=== PATIENT | male | born 1945 | race Caucasian/White ===

== ENCOUNTER → 2016-09-03 | Outpatient (CLI) | payer MEDICARE ==
--- NOTE | 2016-09-03 08:09 | MR ---
EXAMINATION TYPE: MR brain wo/w con DATE OF EXAM: 09/03/2016 7:19 AM COMPARISON: NONE HISTORY: memory loss , hemiparesis rt side CONTRAST: Patient received 17 mL intravenous MultiHance gadolinium contrast. Multiplanar and multispin-echo imaging of the brain was performed . Pre and post contrast enhanced i mages are obtained. The ventricles, basal cisterns and sulci overlying the cerebral convexities are mildly enlarged. There is evidence of mild periventricular white matter ischemic demyelination. Remote deep white matter insults are also noted. No acute edema is seen on diffusion weighted imaging. There is no evidence for midline shift or mass effect. Acute intracranial hemorrhage or extra-axial collection is not evident. No enhancing lesions are seen. There is chronic pansinusitis. Mastoid air cells are well-aerated. IMPRESSION: Age-related atrophic and chronic small vessel ischemic change. No acute intracranial process at this time. No enhancing lesions are seen.
== END | disposition home or self-care (01) ==
LOC: RADMRIMAIN 06:32
PROVIDERS: ATTEND Family Medicine
DX: I67.82 Cerebral ischemia (principal); G31.1 Senile degeneration of brain, not elsewhere classified
CPT/HCPCS: 70553; A9577

== ENCOUNTER → 2018-08-15 | Outpatient (CLI) | payer MEDICARE ==
--- NOTE | 2018-08-15 11:37 | FL ---
EXAMINATION TYPE: FL barium swallow DATE OF EXAM: 08/15/2018 CLINICAL HISTORY: Dysphasia. Feels like food getting stuck in mid to distal esophagus for 4 months. TECHNIQUE: A double contrast esophagram is performed utilizing air and barium. A total of 46 second s of fluoroscopic time was utilized during procedure. A total of 37 spot images are saved during proc edure. COMPARISON: None FINDINGS: The esophagus shows fairly moderate dysmotility with abnormal secondary and tertiary contra ctions. No abnormal diverticulum is present. No evidence of suspicious mucosal mass or stricture note d. Small sliding-type hiatal hernia is identified. No significant gastroesophageal reflux was seen du ring real time performance of this study. IMPRESSION: Moderate dysmotility with small sliding-type hiatal hernia.
== END | disposition home or self-care (01) ==
LOC: RADFLWHC 10:45
PROVIDERS: ATTEND Surgery
DX: K22.4 Dyskinesia of esophagus (principal); K44.9 Diaphragmatic hernia without obstruction or gangrene
CPT/HCPCS: 74220

== ENCOUNTER 2018-08-20 10:05 | Day surgery (SDC) | payer MEDICARE ==
[2018-08-19 11:23] VITALS: BMI 26.5
[~2018-08-20 10:05] MED LIST: LACTATED RINGERS 1,000 ML IV SCH; LIDOCAINE 1% 20 ML VIAL (10MG/ML) FOR IV START INTRADERMA PRN
[2018-08-20 10:44] VITALS: RESP 16; TEMP 98.1
[2018-08-20] MEDS ORDERED: LIDOCAINE 1% INJ 10MG/ML (20 ML MDV) ONE (10:59)
[2018-08-20] MEDS ORDERED: PROPOFOL 10 MG/ML 20 ML VIAL IV ONE (10:59)
--- NOTE | 2018-08-20 11:07 | P.GSHP ---
History of Present Illness H&P Date: 08/20/18 Chief Complaint: Dysphagia, history of colon Polyps This is a 73-year-old male who presents today for EGD and colonoscopy. He said complaints of dysphagia. He also history of colon polyps. Past Medical History Past Medical History: Dementia, GERD/Reflux, Memory Impairment, Prostate Disorder, Sleep Apnea/CPAP/BIPAP Additional Past Medical History / Comment(s): having difficulty with swallowing,uses cpap intermittently,able to sign own consents,enlarged prostate History of Any Multi-Drug Resistant Organisms: None Reported Past Surgical History: Bowel Resection Additional Past Surgical History / Comment(s): Yfn fundoplication,bowel resections to remove polyp Past Anesthesia/Blood Transfusion Reactions: No Reported Reaction Additional Past Anesthesia/Blood Transfusion Reaction / Comment(s): no hx blood transfusion Smoking Status: Never smoker - Past Family History Mother History Unknown: Yes Father Family Medical History: No Reported History Medications and Allergies Home Medications Medication Instructions Recorded Confirmed Type Donepezil HCl [Aricept] 10 mg PO DAILY 08/19/18 08/20/18 History Ergocalciferol [Vitamin D2] 50,000 unit PO Q7D 08/19/18 08/20/18 History Finasteride [Proscar] 5 mg PO DAILY 08/19/18 08/20/18 History Memantine [Namenda] 10 mg PO BID 08/19/18 08/20/18 History Simvastatin 40 mg PO DAILY 08/19/18 08/20/18 History Tamsulosin [Flomax] 0.4 mg PO DAILY 08/19/18 08/20/18 History Allergies Allergy/AdvReac Type Severity Reaction Status Date / Time No Known Allergies Allergy Verified 08/19/18 11:11 Surgical - Exam Vital Signs Temp Pulse Resp BP Pulse Ox 98.1 F 54 L 16 150/71 94 L 08/20/18 10:42 08/20/18 10:42 08/20/18 10:42 08/20/18 10:42 08/20/18 10:42 - General well developed, well nourished, no distress - Eyes PERRL - ENT normal pinna - Neck no masses - Respiratory normal expansion - Cardiovascular Rhythm: regular - Abdomen Abdomen: soft, non tender Assessment and Plan Assessment: Dysphagia, history of colon polyps. We'll perform EGD and colonoscopy.
--- NOTE | 2018-08-20 11:37 | P.OP ---
Date of Procedure: 08/20/18 Preoperative Diagnosis: Dysphagia History of colon polyps Postoperative Diagnosis: Mild antral gastritis No evidence of upper GI tract obstruction. Minimal sliding hiatal hernia Multiple colonic polyps Procedure(s) Performed: EGD Colonoscopy Anesthesia: MAC Surgeon: Castillo Muhammad Pathology: other (Antrum, colon polyps) Condition: stable Disposition: PACU Description of Procedure: The patient's placed on the endoscopy table in the lateral position. He received IV sedation. The gastroscope placed oropharynx passed in the esophagus and stomach. Scope was then placed through the pylorus.. The first second portion of the duodenum appeared normal. Scope was then brought back the antrum and this was mildly inflamed. A biopsy was performed. The scope was unretroflexed and remainder of the stomach appeared normal. The patient had a very minimal sliding hiatal hernia. There was no significant reflux. The distal esophagus appeared normal. The GE junction was at 40 cm. The proximal esophagus appeared normal. Scope was withdrawn for patient. Next digital rectal exam was performed which revealed no abnormalities. The flexible colonoscope was then placed patient anus passed throughout the entire colon. The ileocecal valve was visualized. The cecum appeared normal. In the right colon there was a polyp seen this removed with a combination of snare and cold forcep. Scope was then brought back and in the transverse colon there were several small polyps removed with a cold forcep. The scope was then withdrawn remainder the transverse colon descending colon appeared normal. There was a few scattered diverticulitis sigmoid colon. Scope was then brought back the rectum and this appeared normal. Scope withdrawn for patient.
[2018-08-20 11:47] VITALS: BP 103/61; PULSE 62
== END 2018-08-20 12:31 | disposition home or self-care (01) ==
LOC: ORWHC2ENDO 10:05
PROVIDERS: ATTEND Surgery
DX: Z12.11 Encounter for screening for malignant neoplasm of colon (principal); D12.2 Benign neoplasm of ascending colon; D12.3 Benign neoplasm of transverse colon; K44.9 Diaphragmatic hernia without obstruction or gangrene; K29.50 Unspecified chronic gastritis without bleeding; Z86.010 Personal history of colon polyps; K21.9 Gastro-esophageal reflux disease without esophagitis; E78.5 Hyperlipidemia, unspecified; F03.90 Unspecified dementia, unspecified severity, without behavioral disturbance, psychotic disturbance, mood disturbance, and anxiety; N40.0 Benign prostatic hyperplasia without lower urinary tract symptoms; R41.3 Other amnesia; G47.30 Sleep apnea, unspecified; Z99.89 Dependence on other enabling machines and devices; Z90.49 Acquired absence of other specified parts of digestive tract; Z79.899 Other long term (current) drug therapy
CPT/HCPCS: 43239; 45380; 45385; 88305

== ENCOUNTER → 2019-12-30 | Outpatient (CLI) | payer MEDICARE ==
--- NOTE | 2019-12-30 11:44 | CT ---
EXAMINATION TYPE: CT abdomen pelvis w con DATE OF EXAM: 12/30/2019 COMPARISON: None. HISTORY: Abnormal weight loss CT DLP: 673.00 mGycm, Automated Exposure Control for Dose Reduction was Utilized. CONTRAST: CT scan of the abdomen and pelvis is performed without oral but with IV Contrast, patient injected wi th 100 ml mL of Isovue 300. FINDINGS: LUNG BASES: Dependent atelectasis. Right coronary artery calcification. LIVER/GB: Subcentimeter low dense lesion right hepatic lobe axial image 10 too small to further nabeel racterize presumed benign. Liver heterogeneously hypodense suggesting fatty infiltration. PANCREAS: No significant abnormality is seen. SPLEEN: No significant abnormality is seen. ADRENALS: No significant abnormality is seen. KIDNEYS: Symmetric cortical medullary uptake and excretion without hydronephrosis seen bilaterally. C entral simple appearing thin-walled parapelvic cysts in the left kidney are noted. BOWEL: Suboptimal evaluation without enteric contrast. No suspicious small or large bowel dilatation. Surgical changes near diaphragmatic hiatus are present with clips. No recurrent hiatal hernia. Focal Moderate to severe wall thickening in the pylorus. No suspicious small or large bowel dilatation. Streeter rgical sutures base of cecum likely from appendectomy as normal or abnormal appendix is not identifie d. Distal colonic diverticula on the left and sigmoid colon. No CT evidence for acute diverticulitis. PROSTATE/SEMINAL VESICLES: Mildly enlarged bulging on bladder base. LYMPH NODES: No greater than 1cm abdominal or pelvic lymph nodes are appreciated. OSSEOUS STRUCTURES: Moderate disc space narrowing and vacuum disc phenomenon L4-L5 level. Facet arthr opathy lower lumbar spine. OTHER: Mild/moderate calcified plaque of the abdominal aorta extends into branch vessels. Small fat-c ontaining left inguinal hernia. IMPRESSION: 1. Fairly severe wall thickening in the pylorus near duodenal junction, consider direct visualization to further assess gastritis versus infiltrative lesion. Otherwise no suspicious mass or adenopathy n oted.
== END | disposition home or self-care (01) ==
LOC: RADCTMAIN 09:53
PROVIDERS: ATTEND Internal Medicine Gastroenterology
DX: K31.89 Other diseases of stomach and duodenum (principal)
CPT/HCPCS: 82565; 84520; 74177; 36415; Q9967

== ENCOUNTER 2020-01-22 16:13 | Emergency (ER) | payer MEDICARE ==
[2020-01-22 16:18] VITALS: TEMP 98.1
[2020-01-22 16:29] LABS: Glucose,Whole Blood 153 mg/dL (75-99)
[2020-01-22] MEDS ORDERED: SODIUM CHLORIDE 0.9% 1,000 ML IV STA (16:50)
[2020-01-22] MEDS ORDERED: ONDANSETRON 4 MG/2 ML VIAL IVP STA (16:50)
--- NOTE | 2020-01-22 16:54 | ED ---
General Adult HPI - General Chief complaint: Dizziness Stated complaint: dizziness Time Seen by Provider: 01/22/20 16:23 Source: patient, family Mode of arrival: wheelchair Limitations: no limitations - History of Present Illness Initial comments: Dictation was produced using [employer] dictation software. please excuse any grammatical, word or spelling errors. This patient was cared for during a federal and state declared state of emergency secondary to Covid 19 Chief Complaint: 74-year-old is answered dizziness History of Present Illness: 74-year-old male past medical history of Parkinson's disease, dementia urinary retention presents with dizziness. Patient is accompanied by his . reports that at approximately 2:30 PM patient went upstairs to get out of his clothes. He then proceeded to walk down the stairs when all of a sudden he felt very dizzy. He states the room was spinning at that time. Patient states he feels rather well currently. Patient does have mild headache. He did not lose consciousness or fall to the ground. Patient during at time of his symptoms laid down the ground when his symptoms started to improve. Prior to the onset of symptoms they were outside doing some mild work outside the house. believes that perhaps patient was working too hard and wearing to his clothing at the time. The ROS documented in this emergency department record has been reviewed and confirmed by me. Those systems with pertinent positive or negative responses have been documented in the HPI. All other systems are other negative and/or noncontributory. PHYSICAL EXAM: General Impression: Alert and oriented x3, not in acute distress HEENT: Normocephalic atraumatic, extra-ocular movements intact, pupils equal and reactive to light bilaterally, mucous membranes moist. Cardiovascular: Heart regular rate and rhythm Chest: Able to complete full sentences, no retractions, no tachypnea Abdomen: abdomen soft, non-tender, non-distended, no organomegaly Musculoskeletal: Pulses present and equal in all extremities, no peripheral edema Motor: no focal deficits noted Neurological: CN II-XII grossly intact, no focal motor or sensory deficits noted, no nystagmus Skin: Intact with no visualized rashes Psych: Normal affect and mood ED course: 74-year-old male presents with dizziness. Vital signs upon arrival are within acceptable limits. Medications reviewed. Laboratory evaluation obtained. CBC is unremarkable. Coag panel negative. Metabolic panel shows elevated BUN to creatinine ratio. Lactic acidosis at 2.5. Rest of labs unremarkable. Patient given intravenous fluids. Recheck lactic acid was normal. Patient feels significantly better and is agreeable for discharge. Eyes follow up with primary care physician. Return Prevacid discussed. EKG interpretation: Ventricular rate 56, sinus bradycardia, KY interval 164, QRS 80, QTc 467. No KY prolongation, no QTC prolongation, no ST or T-wave changes noted. Overall, this EKG is unremarkable - Related Data Home Medications Medication Instructions Recorded Confirmed Donepezil HCl [Aricept] 10 mg PO DAILY 08/19/18 08/20/18 Ergocalciferol [Vitamin D2] 50,000 unit PO Q7D 08/19/18 08/20/18 Finasteride [Proscar] 5 mg PO DAILY 08/19/18 08/20/18 Memantine [Namenda] 10 mg PO BID 08/19/18 08/20/18 Simvastatin 40 mg PO DAILY 08/19/18 08/20/18 Tamsulosin [Flomax] 0.4 mg PO DAILY 08/19/18 08/20/18 Allergies Allergy/AdvReac Type Severity Reaction Status Date / Time No Known Allergies Allergy Verified 01/22/20 16:18 Review of Systems ROS Statement: Those systems with pertinent positive or pertinent negative responses have been documented in the HPI. ROS Other: All systems not noted in ROS Statement are negative. Past Medical History Past Medical History: Dementia Additional Past Medical History / Comment(s): parkinsons, urinary retention History of Any Multi-Drug Resistant Organisms: None Reported Past Psychological History: No Psychological Hx Reported Smoking Status: Never smoker Past Alcohol Use History: None Reported Past Drug Use History: None Reported General Exam Limitations: no limitations Course Vital Signs 01/22/20 16:16 Temperature 98.1 F Pulse Rate 55 L Respiratory 18 Rate Blood Pressure 118/67 O2 Sat by Pulse 98 Oximetry Medical Decision Making - Lab Data Result diagrams: 01/22/20 16:53 01/22/20 16:53 Lab Results 01/22/20 01/22/20 01/22/20 Range/Units 16:27 16:53 16:53 WBC 10.1 (3.8-10.6) k/uL RBC 4.95 (4.30-5.90) m/uL Hgb 16.1 (13.0-17.5) gm/dL Hct 49.0 (39.0-53.0) % MCV 98.9 (80.0-100.0) fL MCH 32.6 (25.0-35.0) pg MCHC 32.9 (31.0-37.0) g/dL RDW 12.7 (11.5-15.5) % Plt Count 241 (150-450) k/uL Neutrophils % 70 % Lymphocytes % 21 % Monocytes % 6 % Eosinophils % 2 % Basophils % 1 % Neutrophils # 7.0 (1.3-7.7) k/uL Lymphocytes # 2.1 (1.0-4.8) k/uL Monocytes # 0.6 (0-1.0) k/uL Eosinophils # 0.2 (0-0.7) k/uL Basophils # 0.1 (0-0.2) k/uL PT 10.0 (9.0-12.0) sec INR 1.0 (<1.2) APTT 20.2 L (22.0-30.0) sec Sodium (137-145) mmol/L Potassium (3.5-5.1) mmol/L Chloride (98-107) mmol/L Carbon Dioxide (22-30) mmol/L Anion Gap mmol/L BUN (9-20) mg/dL Creatinine (0.66-1.25) mg/dL Est GFR (CKD-EPI)AfAm (>60 ml/min/1.73 sqM) Est GFR (CKD-EPI)NonAf (>60 ml/min/1.73 sqM) Glucose (74-99) mg/dL POC Glucose (mg/dL) 153 H (75-99) mg/dL POC Glu Lens Generator Francy Guadarrama Plasma Lactic Acid Hussain (0.7-2.0) mmol/L Calcium (8.4-10.2) mg/dL Ionized Calcium Manuela (4.5-5.3) mg/dL Magnesium (1.6-2.3) mg/dL Total Bilirubin (0.2-1.3) mg/dL AST (17-59) U/L ALT (4-49) U/L Alkaline Phosphatase (38-126) U/L Total Protein (6.3-8.2) g/dL Albumin (3.5-5.0) g/dL 01/22/20 01/22/20 01/22/20 Range/Units 16:53 16:53 18:13 WBC (3.8-10.6) k/uL RBC (4.30-5.90) m/uL Hgb (13.0-17.5) gm/dL Hct (39.0-53.0) % MCV (80.0-100.0) fL MCH (25.0-35.0) pg MCHC (31.0-37.0) g/dL RDW (11.5-15.5) % Plt Count (150-450) k/uL Neutrophils % % Lymphocytes % % Monocytes % % Eosinophils % % Basophils % % Neutrophils # (1.3-7.7) k/uL Lymphocytes # (1.0-4.8) k/uL Monocytes # (0-1.0) k/uL Eosinophils # (0-0.7) k/uL Basophils # (0-0.2) k/uL PT (9.0-12.0) sec INR (<1.2) APTT (22.0-30.0) sec Sodium 139 (137-145) mmol/L Potassium 4.1 (3.5-5.1) mmol/L Chloride 106 (98-107) mmol/L Carbon Dioxide 24 (22-30) mmol/L Anion Gap 9 mmol/L BUN 22 H (9-20) mg/dL Creatinine 0.98 (0.66-1.25) mg/dL Est GFR (CKD-EPI)AfAm 89 (>60 ml/min/1.73 sqM) Est GFR (CKD-EPI)NonAf 77 (>60 ml/min/1.73 sqM) Glucose 144 H (74-99) mg/dL POC Glucose (mg/dL) (75-99) mg/dL POC Glu Lens Generator ID Plasma Lactic Acid Hussain 2.5 H* 1.2 (0.7-2.0) mmol/L Calcium 9.1 (8.4-10.2) mg/dL Ionized Calcium Manuela 4.8 (4.5-5.3) mg/dL Magnesium 2.0 (1.6-2.3) mg/dL Total Bilirubin 0.6 (0.2-1.3) mg/dL AST 26 (17-59) U/L ALT 25 (4-49) U/L Alkaline Phosphatase 62 (38-126) U/L Total Protein 6.6 (6.3-8.2) g/dL Albumin 4.1 (3.5-5.0) g/dL Disposition Clinical Impression: Dehydration Disposition: HOME SELF-CARE Condition: Good Instructions (If sedation given, give patient instructions): Dehydration (ED) Is patient prescribed a controlled substance at d/c from ED?: No Referrals: Laina Cedeno DO [Primary Care Provider] - 1-2 days Time of Disposition: 18:52
[2020-01-22 17:08] LABS: Basophils # (A) 0.1 k/uL (0-0.2); Basophils % (A) 1 %; Eosinophils # (A) 0.2 k/uL (0-0.7); Eosinophils % (A) 2 %; HGB 16.1 gm/dL (13.0-17.5); Lymphocytes # (A) 2.1 k/uL (1.0-4.8); Lymphocytes % (A) 21 %; MCH 32.6 pg (25.0-35.0); MCHC 32.9 g/dL (31.0-37.0); MCV 98.9 fL (80.0-100.0); Mean Platelet Volume 7.4; Monocytes # (A) 0.6 k/uL (0-1.0); Monocytes % (A) 6 %; Neutrophils % (A) 70 %; Platelet Count 241 k/uL (150-450); RBC 4.95 m/uL (4.30-5.90); RDW 12.7 % (11.5-15.5); WBC 10.1 k/uL (3.8-10.6)
[2020-01-22 17:13] LABS: Ionized Calcium 4.8 mg/dL (4.5-5.3)
[2020-01-22 17:19] LABS: Albumin 4.1 g/dL (3.5-5.0); Calcium 9.1 mg/dL (8.4-10.2); Potassium 4.1 mmol/L (3.5-5.1); Total Bilirubin 0.6 mg/dL (0.2-1.3); Total Protein 6.6 g/dL (6.3-8.2)
[2020-01-22 17:23] LABS: Partial Thromboplastin Time 20.2 sec (22.0-30.0)
[2020-01-22 19:09] VITALS: BP 127/89; PULSE 59; RESP 16
== END 2020-01-22 19:07 | disposition home or self-care (01) ==
LOC: EC 16:13
DX: E86.0 Dehydration (principal); R42 Dizziness and giddiness; E87.2 Acidosis; R79.89 Other specified abnormal findings of blood chemistry; R00.1 Bradycardia, unspecified; F03.90 Unspecified dementia, unspecified severity, without behavioral disturbance, psychotic disturbance, mood disturbance, and anxiety; Z79.899 Other long term (current) drug therapy
CPT/HCPCS: 99284 ×2; 96374 ×2; 96361 ×3; 36415; 93005; 80053; 82330; 83605; 83735; 85025; 85610; 85730; J2405

== ENCOUNTER 2020-12-29 07:17 | Day surgery (SDC) | payer MEDICARE ==
[2020-12-26 12:07] VITALS: BMI 25.0
[~2020-12-29 07:17] MED LIST changes: -LIDOCAINE 1% 20 ML VIAL (10MG/ML) FOR IV START INTRADERMA PRN
[2020-12-29 07:50] VITALS: RESP 16; TEMP 97.9
[2020-12-29] MEDS ORDERED: PROPOFOL 10 MG/ML 20 ML VIAL IV ONE (08:31)
[2020-12-29] MEDS ORDERED: LIDOCAINE 1% INJ 10MG/ML (20 ML MDV) ONE (08:31)
--- NOTE | 2020-12-29 08:33 | P.GSHP ---
History of Present Illness H&P Date: 12/29/20 Chief Complaint: GERD, history: Polyps This a 75-year-old male who presents today for EGD and colonoscopy. He has previous history of GERD and colon polyps. Past Medical History Past Medical History: Dementia Additional Past Medical History / Comment(s): hx multiple colon polyps,esophagus problems,parkinsons, urinary retention History of Any Multi-Drug Resistant Organisms: None Reported Past Surgical History: Bowel Resection Additional Past Surgical History / Comment(s): bowel resection due to large polyp,hiatal hernia surgery,torn meniscus repair Past Anesthesia/Blood Transfusion Reactions: No Reported Reaction Smoking Status: Never smoker - Past Family History Mother Family Medical History: Cancer Father Family Medical History: Cancer Medications and Allergies Home Medications Medication Instructions Recorded Confirmed Type Donepezil HCl [Aricept] 10 mg PO HS 08/19/18 12/26/20 History Ergocalciferol [Vitamin D2] 50,000 unit PO Q7D 08/19/18 12/26/20 History Finasteride [Proscar] 5 mg PO DAILY 08/19/18 12/26/20 History Simvastatin 40 mg PO DAILY 08/19/18 12/26/20 History Tamsulosin [Flomax] 0.4 mg PO DAILY 08/19/18 12/26/20 History Pantoprazole Sodium 40 mg PO DAILY 12/26/20 12/26/20 History buPROPion HCL [buPROPion HCL SR] 150 mg PO DAILY 12/26/20 12/26/20 History Allergies Allergy/AdvReac Type Severity Reaction Status Date / Time No Known Allergies Allergy Verified 12/26/20 11:56 Surgical - Exam Vital Signs Temp Pulse Resp BP Pulse Ox 97.9 F 58 L 16 125/72 96 12/29/20 07:48 12/29/20 07:48 12/29/20 07:48 12/29/20 07:48 12/29/20 07:48 - General well developed, well nourished, no distress - Eyes PERRL - ENT normal pinna - Neck no masses - Respiratory normal expansion - Cardiovascular Rhythm: regular - Abdomen Abdomen: soft, non tender Assessment and Plan Assessment: GERD, colon polyps. We'll perform colonoscopy.
[2020-12-29] MEDS ORDERED: IV FLUID CONTINUATION 1,000 ML IV ONE (08:57)
--- NOTE | 2020-12-29 09:00 | P.OP ---
Date of Procedure: 12/29/20 Preoperative Diagnosis: GERD History of colon polyps Postoperative Diagnosis: Antral gastritis No evidence of hiatal hernia No significant esophagitis External hemorrhoids Procedure(s) Performed: EGD Colonoscopy Anesthesia: MAC Surgeon: Castillo Muhammad Pathology: other Condition: stable Disposition: PACU Description of Procedure: Patient's placed on the endoscopy table lateral position. He received IV sedation. The gastroscope placed oropharynx passed in the esophagus and stomach. Scope was then placed through the pylorus. The first and second portion of duodenum appeared normal. Scope was then brought back the antrum this. Mildly inflamed. A biopsies performed. The scope was then retroflexed and remainder the stomach appeared normal. There was no significant hiatal hernia. The GE junction was at 47 is. The patient had a previous hiatal hernia repair. The wrap appeared to be in appropriate position. The distal esophagus appeared normal. A random biopsies performed. The proximal esophagus appeared normal. Scope was withdrawn for patient. Next digital rectal exam was performed which revealed external hemorrhoids. Flexible colonoscope was then placed patient anus and passed throughout the colon. The scope could not be passed into the proximal right colon secondary tortuous the bowel. This point scope was withdrawn. The distal right colon, transverse colon and descending colon appeared normal. There was a couple of scattered diverticuli in the descending and sigmoid colon there were no polyps seen. Summer back the rectum this appeared normal. Scope withdrawn from patient.
[2020-12-29 09:19] VITALS: BP 119/76; PULSE 58
== END 2020-12-29 10:15 | disposition home or self-care (01) ==
LOC: ORWHC2ENDO 07:17
PROVIDERS: ATTEND Surgery
DX: K29.70 Gastritis, unspecified, without bleeding (principal); K64.4 Residual hemorrhoidal skin tags; F02.80 Dementia in other diseases classified elsewhere, unspecified severity, without behavioral disturbance, psychotic disturbance, mood disturbance, and anxiety; G20 Parkinson's disease; K63.5 Polyp of colon; K21.9 Gastro-esophageal reflux disease without esophagitis; E78.5 Hyperlipidemia, unspecified; K44.9 Diaphragmatic hernia without obstruction or gangrene; Z86.010 Personal history of colon polyps; Z79.899 Other long term (current) drug therapy
CPT/HCPCS: 45378; 43239; 88305; J2001; J2704

== ENCOUNTER → 2022-10-19 | Outpatient (CLI) | payer MEDICARE ==
[~2022-10-19] MED LIST changes: +IODINE/POTASSIUM IODIDE 14 ML BOTTLE ONE; -LACTATED RINGERS 1,000 ML IV SCH
--- NOTE | 2022-10-22 09:14 | NM ---
EXAMINATION TYPE: NM DatScan Brain SPECT DATE OF EXAM: 10/19/2022 COMPARISON: NONE HISTORY: Tremors TECHNIQUE: 10 drops of Lugol's solution was administered 1 hour prior to injection as a thyroid bloc susan agent. After the administration of 4.5 mCi I-123 Ioflupane DaTscan. Images obtained [address] injection. SPECT images of the brain were acquired with axial and coronal reconstructions. FINDINGS: The axial SPECT images demonstrate increased background activity and reduced activity withi n the bilateral striata. IMPRESSION: Abnormal appearance highly suggestive of idiopathic Parkinson's disease or Parkinsonian s yndrome.
== END | disposition home or self-care (01) ==
LOC: RADNMMAIN 10:25
PROVIDERS: ATTEND Family Medicine
DX: G20 Parkinson's disease (principal)
CPT/HCPCS: 78803; A9584

== ENCOUNTER 2023-01-02 19:14 | Emergency (ER) | payer MEDICARE ==
[2023-01-02 19:23] VITALS: BP 145/81; PULSE 71; RESP 18; TEMP 97.9
[2023-01-02] MEDS ORDERED: ASPIRIN 81 MG PO STA (21:30)
[2023-01-02] MEDS ORDERED: SODIUM CHLORIDE 0.9% 1,000 ML IV STA (21:30)
--- NOTE | 2023-01-02 21:51 | ED ---
General Adult HPI - General Chief complaint: Chest Pain Stated complaint: Abd pain Time Seen by Provider: 01/02/23 21:15 Source: patient, family, RN notes reviewed, old records reviewed Mode of arrival: ambulatory Limitations: no limitations - History of Present Illness Initial comments: Patient is a 77 year old male who presents emergency Department with his over concern primarily for abdominal pain but also brief episode of chest pain earlier this evening. Patient did have some chest discomfort when he initially arrived and he initially had it after moving some heavy boxes at home. If since resolved and he has no chest pain. He also denies any abdominal pain but apparently has been complaining of lower abdominal pain for last 2 days. Patient has a history of Parkinson's and dementia as well as prior partial colectomy secondary to large polyp back in 2019 with recently clear colonoscopy this year. He has been having adequate flatus as well as belching. No nausea or vomiting. No last bowel movement the patient's typically does not monitor that. Patient is unable to tell me when his last bowel movement is. Patient is somewhat unreliable due to his history of dementia. Denies any urinary complaints. Has no cardiac complaints. Has no cardiac history. I evaluated the patient beginning my shift when he was placed in room. Presents with his For further evaluation at this time. - Related Data Home Medications Medication Instructions Recorded Confirmed Donepezil HCl [Aricept] 10 mg PO HS 08/19/18 12/26/20 Ergocalciferol [Vitamin D2] 50,000 unit PO Q7D 08/19/18 12/26/20 Finasteride [Proscar] 5 mg PO DAILY 08/19/18 12/26/20 Simvastatin 40 mg PO DAILY 08/19/18 12/26/20 Tamsulosin [Flomax] 0.4 mg PO DAILY 08/19/18 12/26/20 Pantoprazole Sodium 40 mg PO DAILY 12/26/20 12/26/20 buPROPion HCL [buPROPion HCL SR] 150 mg PO DAILY 12/26/20 12/26/20 Allergies Allergy/AdvReac Type Severity Reaction Status Date / Time No Known Allergies Allergy Verified 01/02/23 19:19 Review of Systems ROS Statement: Those systems with pertinent positive or pertinent negative responses have been documented in the HPI. Review of Systems: CONST: Denies fever EYES: Denies blurry vision ENT: Denies nasal congestion C/V: Denies Chest pain RESP: Denies shortness of breath GI: Denies abdominal pain : Denies dysuria SKIN: Denies rash. MSK: Denies joint pain. NEURO: Denies headache ROS Other: All systems not noted in ROS Statement are negative. Past Medical History Past Medical History: Dementia Additional Past Medical History / Comment(s): hx multiple colon polyps,esophagus problems,parkinsons, urinary retention History of Any Multi-Drug Resistant Organisms: None Reported Past Surgical History: Bowel Resection Additional Past Surgical History / Comment(s): bowel resection due to large polyp,hiatal hernia surgery,torn meniscus repair Past Anesthesia/Blood Transfusion Reactions: No Reported Reaction Past Psychological History: No Psychological Hx Reported Smoking Status: Never smoker Past Alcohol Use History: None Reported Past Drug Use History: None Reported - Past Family History Mother Family Medical History: Cancer Father Family Medical History: Cancer General Exam - General Exam Comments Initial Comments: General: Appears in no acute distress.. Patient has tremors secondary to known Parkinson's. HEAD: Normal with no signs of head trauma. EYES: PERRLA, EOMI, conjunctiva normal, no discharge. ENT: Hearing grossly intact, normal oropharynx. RESPIRATORY: Clear breath sounds bilaterally. No wheezes, rales, or rhonchi. C/V: Regular rate and rhythm. S1 and S2 auscultated, no edema, peripheral pu lses 2+ and intact throughout ABD: Abd is soft, nontender, nondistended EXT: Normal range of motion, no obvious deformity SKIN: No rashes or lesions observed on exposed skin. NEURO: Alert and oriented 2-3 which is his baseline. Tremor secondary to Parkinson's. No obvious acute focal deficits appreciated. Limitations: no limitations Course Vital Signs 01/02/23 19:19 Temperature 97.9 F Pulse Rate 71 Respiratory 18 Rate Blood Pressure 145/81 O2 Sat by Pulse 98 Oximetry Medical Decision Making - Medical Decision Making Was pt. sent in by a medical professional or institution (ELIJAH Lea, VISUALIZATION DEVELOPER, urgent care, hospital, or alf...) When possible be specific @ -No Did you speak to anyone other than the patient for history (EMS, parent, family, police, friend...)? What history was obtained from this source @ -Patient's is at bedside and with the primary historian for the patient due to his dementia. Did you review nursing and triage notes (agree or disagree)? Why? @ -I reviewed and agree with nursing and triage notes Were old charts reviewed (outside hosp., previous admission, EMS record, old EKG, old radiological studies, urgent care reports/EKG's, alf records)? Report findings @ -Old charts reviewed Differential Diagnosis (chest pain, altered mental status, abdominal pain women, abdominal pain men, vaginal bleeding, weakness, fever, dyspnea, syncope, headache, dizziness, GI bleed, back pain, seizure, CVA, palpatations, mental health, musculoskeletal)? @ -Differential Abdominal Pain Men: Appendicitis, cholecystitis, diverticulosis, ischemic bowel, pancreatitis, hepatitis, UTI, gastroenteritis, AAA, incarcerated hernia, bowel obstruction, constipation, inflammatory bowel, hepatitis, peptic ulcer disease, splenic infarction, perforated viscus, testicular torsion, this is not meant to be an all-inclusive list Differential Chest Pain: Stable Angina, Unstable Angina, STEMI, NSTEMI Aortic Dissection, Pneumothorax, Musculoskeletal, Esophageal Spasm GERD, Cholecystitis, Pancreatitis, Zoster, this is not meant to be an all-inclusive list. EKG interpreted by me (3pts min.). @ -As above X-rays interpreted by me (1pt min.). @ -Chest x-ray shows no obvious acute cardiopulmonary process. CT interpreted by me (1pt min.). @ -CT abdomen and pelvis revealed no obvious acute intra-abdominal process. There is chronic gastritis present which is seen on previous imaging U/S interpreted by me (1pt. min.). @ -None done What testing was considered but not performed or refused? (CT, X-rays, U/S, labs)? Why? @ -None What meds were considered but not given or refused? Why? @ -Antiemetics as well as pain medications were considered however patient is currently asymptomatic. Did you discuss the management of the patient with other professionals (professionals i.e. , PA, VISUALIZATION DEVELOPER, lab, RT, psych nurse, social services technician, manager reading, teacher, tactical deception plans officer, heel caser)? Give summary @ -No Was smoking cessation discussed for >3mins.? @ -No Was critical care preformed (if so, how long)? @ -No Were there social determinants of health that impacted care today? How? (Homelessness, low income, unemployed, alcoholism, drug addiction, transportation, low edu. Level, literacy, decrease access to med. care, shelter, rehab)? @ -No Was there de-escalation of care discussed even if they declined (Discuss DNR or withdrawal of care, Hospice)? DNR status @ -No What co-morbidities impacted this encounter? (DM, HTN, Smoking, COPD, CAD, Cancer, CVA, ARF, Chemo, Hep., AIDS, mental health diagnosis, sleep apnea, morbid obesity)? @ -None Was patient admitted / discharged? Hospital course, mention meds given and route, prescriptions, significant lab abnormalities, going to OR and other pertinent info. @ -Based on the patient's presentation and physical exam, I'm concerned for possible intra-abdominal processes patient's current symptoms. Cannot rule out cardiac etiology for his chest pain earlier however I low suspicion as he currently has no symptoms, was related to lifting heavy objects and currently has no chest pain with no history. Is been multiple hours since onset of chest pain. Discussed this with the patient's white but we will obtain screening EKG as well as troponin. She was in agreement this plan. Patient was also in agreement this plan. We will obtain abdominal laboratory studies as well as a CT abdomen and pelvis. Patient was in agreement with this plan. Vital signs within acceptable limits. Patient be given 1 L fluid bolus as well as drainage in 324 mg aspirin. EKG showed no evidence of acute ischemia. Patient did have an initial EKG obtained in triage however there was a lot of baseline artifact secondary to patient's tremors and was an overall very poor EKG for interpretation because of this artifact. Therefore repeat was obtained after I evaluated the patient and with adjustment of the patient's limb leads we were able to eliminate the tremors and baseline artifact. Imaging revealed gastritis but no other obvious acute process. Patient's laboratory studies are within acceptable limits including undetectable troponin. On reevaluation, I discussed results of the patient as well as his . He remains asymptomatic. He would like to go home. I believe this is reasonable. Patient's was in agreement with plan as well. Strict return precautions discussed. I instructed the patient to follow up with their PCP in the next 1-3 days. I e xplained that the patient should return to the emergency department if they experience any worsening symptoms. Strict return precautions were discussed with the patient. The patient expressed understanding of these instructions. I answered all questions that the patient had. The patient was discharged home in good condition with their prescriptions and follow up information. Undiagnosed new problem with uncertain prognosis? @ -No Drug Therapy requiring intensive monitoring for toxicity (Heparin, Nitro, Insulin, Cardizem)? @ -No Were any procedures done? @ -No Diagnosis/symptom? @ -Atypical chest pain, abdominal pain of unknown etiology. Acute, or Chronic, or Acute on Chronic? @ -Acute Uncomplicated (without systemic symptoms) or Complicated (systemic symptoms)? @ -Uncomplicated Side effects of treatment? @ -none Exacerbation, Progression, or Severe Exacerbation] @ -no Poses a threat to life or bodily function? @ -no - Lab Data Result diagrams: 01/02/23 22:02 01/02/23 22:02 Lab Results 01/02/23 01/02/23 01/02/23 Range/Units 22:02 22:02 22:02 WBC 7.4 (3.8-10.6) k/uL RBC 4.85 (4.30-5.90) m/uL Hgb 15.4 (13.0-17.5) gm/dL Hct 47.3 (39.0-53.0) % MCV 97.7 (80.0-100.0) fL MCH 31.8 (25.0-35.0) pg MCHC 32.6 (31.0-37.0) g/dL RDW 12.6 (11.5-15.5) % Plt Count 206 (150-450) k/uL MPV 7.1 Neutrophils % 62 % Lymphocytes % 23 % Monocytes % 6 % Eosinophils % 7 % Basophils % 0 % Neutrophils # 4.6 (1.3-7.7) k/uL Lymphocytes # 1.7 (1.0-4.8) k/uL Monocytes # 0.5 (0-1.0) k/uL Eosinophils # 0.5 (0-0.7) k/uL Basophils # 0.0 (0-0.2) k/uL PT 10.2 (9.0-12.0) sec INR 1.0 (<1.2) APTT 23.7 (22.0-30.0) sec Sodium 140 (137-145) mmol/L Potassium 3.9 (3.5-5.1) mmol/L Chloride 104 (98-107) mmol/L Carbon Dioxide 27 (22-30) mmol/L Anion Gap 9 mmol/L BUN 12 (9-20) mg/dL Creatinine 1.00 (0.66-1.25) mg/dL Est GFR (CKD-EPI)AfAm 84 (>60 ml/min/1.73 sqM) Est GFR (CKD-EPI)NonAf 73 (>60 ml/min/1.73 sqM) Glucose 83 (74-99) mg/dL Plasma Lactic Acid Hussain (0.7-2.0) mmol/L Calcium 9.1 (8.4-10.2) mg/dL Total Bilirubin 0.8 (0.2-1.3) mg/dL AST 19 (17-59) U/L ALT 18 (4-49) U/L Alkaline Phosphatase 57 (38-126) U/L Troponin I (0.000-0.034) ng/mL Total Protein 6.5 (6.3-8.2) g/dL Albumin 3.9 (3.5-5.0) g/dL Amylase 78 (30-110) U/L Lipase 98 (23-300) U/L Urine Color Urine Appearance (Clear) Urine pH (5.0-8.0) Ur Specific Ravenel (1.001-1.035) Urine Protein (Negative) Urine Glucose (UA) (Negative) Urine Ketones (Negative) Urine Blood (Negative) Urine Nitrite (Negative) Urine Bilirubin (Negative) Urine Urobilinogen (<2.0) mg/dL Ur Leukocyte Esterase (Negative) 01/02/23 01/02/23 01/02/23 Range/Units 22:02 22:02 23:34 WBC (3.8-10.6) k/uL RBC (4.30-5.90) m/uL Hgb (13.0-17.5) gm/dL Hct (39.0-53.0) % MCV (80.0-100.0) fL MCH (25.0-35.0) pg MCHC (31.0-37.0) g/dL RDW (11.5-15.5) % Plt Count (150-450) k/uL MPV Neutrophils % % Lymphocytes % % Monocytes % % Eosinophils % % Basophils % % Neutrophils # (1.3-7.7) k/uL Lymphocytes # (1.0-4.8) k/uL Monocytes # (0-1.0) k/uL Eosinophils # (0-0.7) k/uL Basophils # (0-0.2) k/uL PT (9.0-12.0) sec INR (<1.2) APTT (22.0-30.0) sec Sodium (137-145) mmol/L Potassium (3.5-5.1) mmol/L Chloride (98-107) mmol/L Carbon Dioxide (22-30) mmol/L Anion Gap mmol/L BUN (9-20) mg/dL Creatinine (0.66-1.25) mg/dL Est GFR (CKD-EPI)AfAm (>60 ml/min/1.73 sqM) Est GFR (CKD-EPI)NonAf (>60 ml/min/1.73 sqM) Glucose (74-99) mg/dL Plasma Lactic Acid Hussain 0.9 (0.7-2.0) mmol/L Calcium (8.4-10.2) mg/dL Total Bilirubin (0.2-1.3) mg/dL AST (17-59) U/L ALT (4-49) U/L Alkaline Phosphatase (38-126) U/L Troponin I <0.012 (0.000-0.034) ng/mL Total Protein (6.3-8.2) g/dL Albumin (3.5-5.0) g/dL Amylase (30-110) U/L Lipase (23-300) U/L Urine Color Colorless Urine Appearance Clear (Clear) Urine pH 5.0 (5.0-8.0) Ur Specific Ravenel 1.018 (1.001-1.035) Urine Protein Negative (Negative) Urine Glucose (UA) Negative (Negative) Urine Ketones Trace H (Negative) Urine Blood Negative (Negative) Urine Nitrite Negative (Negative) Urine Bilirubin Negative (Negative) Urine Urobilinogen <2.0 (<2.0) mg/dL Ur Leukocyte Esterase Negative (Negative) - EKG Data -: EKG Interpreted by Me EKG Comments: 12-lead Electrocardiogram Interpretation Note EKG was reviewed and interpreted by myself. 12-lead ECG performed at 2141 is interpreted by me as revealing normal sinus rhythm at a rate of 65 beats per minute. [place] is normal. AR interval is 181 ms, QRS duration is 86 ms, QTc is 419 ms.. There were no ST or T wave abnormalities to suggest myocardial ischemia or injury. R wave progression across the precordium was satisfactory. By my interpretation this EKG is non-diagnostic for acute ischemia. Disposition Clinical Impression: Abdominal pain of unknown etiology, Atypical chest pain Disposition: HOME SELF-CARE Condition: Good Instructions (If sedation given, give patient instructions): Abdominal Pain (ED) Is patient prescribed a controlled substance at d/c from ED?: No Referrals: Laina Cedeno DO [Primary Care Provider] - 1-2 days Time of Disposition: 00:16
[2023-01-02 22:12] LABS: Basophils % (A) 0 %; Eosinophils # (A) 0.5 k/uL (0-0.7); Eosinophils % (A) 7 %; HCT 47.3 % (39.0-53.0); HGB 15.4 gm/dL (13.0-17.5); Lymphocytes # (A) 1.7 k/uL (1.0-4.8); Lymphocytes % (A) 23 %; MCH 31.8 pg (25.0-35.0); MCHC 32.6 g/dL (31.0-37.0); MCV 97.7 fL (80.0-100.0); Mean Platelet Volume 7.1; Monocytes # (A) 0.5 k/uL (0-1.0); Monocytes % (A) 6 %; Neutrophils # (A) 4.6 k/uL (1.3-7.7); Neutrophils % (A) 62 %; Platelet Count 206 k/uL (150-450); RBC 4.85 m/uL (4.30-5.90); RDW 12.6 % (11.5-15.5); WBC 7.4 k/uL (3.8-10.6)
[2023-01-02 22:22] LABS: Partial Thromboplastin Time 23.7 sec (22.0-30.0); Prothrombin Time 10.2 sec (9.0-12.0)
--- NOTE | 2023-01-02 22:25 | XR ---
EXAMINATION TYPE: XR chest 1V portable DATE OF EXAM: 01/02/2023 COMPARISON: NONE HISTORY: Abdominal pain. TECHNIQUE: Single frontal view of the chest is obtained. FINDINGS: There is no focal air space opacity, pleural effusion, or pneumothorax seen. The cardiac silhouette size is upper limits of normal. The osseous structures are intact. IMPRESSION: No acute process.
[2023-01-02 22:26] LABS: ALT 18 U/L (4-49); AST 19 U/L (17-59); African American GFR (CKD) 84 (>60 ml/min/1.73 sqM); Albumin 3.9 g/dL (3.5-5.0); Alkaline Phosphatase 57 U/L (38-126); Amylase 78 U/L (30-110); Anion Gap 9 mmol/L; Blood Urea Nitrogen 12 mg/dL (9-20); Calcium 9.1 mg/dL (8.4-10.2); Carbon Dioxide 27 mmol/L (22-30); Chloride 104 mmol/L (98-107); Glucose 83 mg/dL (74-99); Lipase 98 U/L (23-300); Non-African American GFR(CKD) 73 (>60 ml/min/1.73 sqM); Potassium 3.9 mmol/L (3.5-5.1); Sodium 140 mmol/L (137-145); Total Bilirubin 0.8 mg/dL (0.2-1.3); Total Protein 6.5 g/dL (6.3-8.2)
--- NOTE | 2023-01-02 23:21 | CT ---
EXAMINATION TYPE: CT abdomen pelvis w con DATE OF EXAM: 01/02/2023 COMPARISON: Prior CT December 30, 2019 HISTORY: PT reports lower quadrant abdominal pain and chest pain. Family reports chest pain started a round [address] DLP: 963.8 mGycm, Automated Exposure Control for Dose Reduction was Utilized. CONTRAST: CT scan of the abdomen and pelvis is performed without oral and with IV Contrast, patient injected wi th 100 mL of Isovue 300. FINDINGS: LUNG BASES: Dependent atelectasis bilaterally redemonstrated. Right coronary artery calcification and /or stents redemonstrated. LIVER/GB: Subcentimeter low dense lesion right hepatic lobe axial image 12 too small to further nabeel racterize is stable and presumed benign. Liver remains heterogeneously slightly hypodense suggesting fatty infiltration. PANCREAS: No significant abnormality is seen. SPLEEN: No significant abnormality is seen. ADRENALS: No significant abnormality is seen. KIDNEYS: Symmetric cortical medullary uptake and excretion without hydronephrosis seen bilaterally. C entral simple appearing thin-walled parapelvic cysts in the left kidney are redemonstrated. BOWEL: Suboptimal evaluation without enteric contrast. No suspicious small or large bowel dilatation. Surgical changes near diaphragmatic hiatus are redemonstrated with clips presumed from prior Yfn fundoplication surgery. No recurrent hiatal hernia. Focal moderate too severe wall thickening in the pylorus and gastric antrum is present. No suspicious small or large bowel dilatation. Surgical suture s base of cecum likely from appendectomy are redemonstrated. Distal colonic diverticula in the left a nd sigmoid colon. No CT evidence for acute diverticulitis. PROSTATE/SEMINAL VESICLES: Enlarged bulging on bladder base. LYMPH NODES: No greater than 1cm abdominal or pelvic lymph nodes are appreciated. OSSEOUS STRUCTURES: Moderate disc space narrowing and vacuum disc phenomenon L4-L5 level. Facet arthr opathy lower lumbar spine. Mild disc space narrowing and vacuum disc phenomenon at L3-L4 level is pre sent. OTHER: Mild/moderate calcified plaque of the abdominal aorta extends into branch vessels. Small 2 mod erate size fat-containing left inguinal hernia is redemonstrated. IMPRESSION: Possible distal gastritis similar to prior. No suspicious new finding otherwise seen to a ccount for patient's symptoms.
[2023-01-02 23:46] LABS: Appearance,Urine Clear (Clear); Bilirubin,Urine Negative (Negative); Blood,Urine Negative (Negative); Color,Urine Colorless; Glucose,Urine (UA) Negative (Negative); Ketones,Urine Trace (Negative); Leukocyte Esterase,Urine Negative (Negative); Nitrite,Urine Negative (Negative); Protein,Urine Negative (Negative); Specific Gravity,Urine 1.018 (1.001-1.035); Urobilinogen,Urine <2.0 mg/dL (<2.0)
== END 2023-01-03 00:48 | disposition home or self-care (01) ==
LOC: EC 19:14
DX: K29.50 Unspecified chronic gastritis without bleeding (principal); R07.89 Other chest pain; G20 Parkinson's disease; F02.80 Dementia in other diseases classified elsewhere, unspecified severity, without behavioral disturbance, psychotic disturbance, mood disturbance, and anxiety; Z79.899 Other long term (current) drug therapy; Z90.49 Acquired absence of other specified parts of digestive tract
CPT/HCPCS: 36415; 93005; 80053; 82150; 83605; 83690; 84484; 85025; 85610; 85730; 81003; 71045; 74177; 99285; 96360; Q9967

== ENCOUNTER → 2023-01-24 | Day surgery (SDC) | payer MEDICARE ==
[2023-01-22 13:24] VITALS: BMI 22.2
[~2023-01-24] MED LIST changes: -IODINE/POTASSIUM IODIDE 14 ML BOTTLE ONE; +LACTATED RINGERS 1,000 ML IV ONE; +LIDOCAINE 1% (10MG/ML) FOR IV START INTRADERMA ONE; +PROPOFOL 10 MG/ML 20 ML VIAL IV ONE
[2023-01-24 08:56] VITALS: TEMP 97
--- NOTE | 2023-01-24 09:44 | P.GSHP ---
History of Present Illness H&P Date: 01/24/23 Chief Complaint: GERD This is a 77-year-old male complaints of GERD. Patient presents today for EGD. Past Medical History Past Medical History: Dementia, GERD/Reflux, Hyperlipidemia Additional Past Medical History / Comment(s): hx multiple colon polyps,esophagus problems,parkinsons, History of Any Multi-Drug Resistant Organisms: None Reported Past Surgical History: Bowel Resection, Hernia Repair, Orthopedic Surgery Additional Past Surgical History / Comment(s): bowel resection due to large polyp,hiatal hernia surgery,torn meniscus repair Past Anesthesia/Blood Transfusion Reactions: No Reported Reaction Additional Past Anesthesia/Blood Transfusion Reaction / Comment(s): no blood transfusion Smoking Status: Never smoker - Past Family History Mother Family Medical History: Cancer Additional Family Medical History / Comment(s): coostomy Father Family Medical History: Cancer Additional Family Medical History / Comment(s): back Medications and Allergies Home Medications Medication Instructions Recorded Confirmed Type Donepezil HCl [Aricept] 10 mg PO HS 08/19/18 01/24/23 History Simvastatin 40 mg PO DAILY 08/19/18 01/24/23 History buPROPion HCL [buPROPion HCL SR] 150 mg PO DAILY 12/26/20 01/24/23 History Acetaminophen [Tylenol] 325 mg PO Q4H PRN 01/22/23 01/24/23 History Carbidopa-Levodopa 25-100 mg 1 each PO BID 01/22/23 01/24/23 History [Sinemet 25-100] Famotidine [Pepcid] 20 mg PO BID 01/22/23 01/24/23 History Memantine HCl 10 mg PO BID 01/22/23 01/24/23 History Omeprazole 40 mg PO BID 01/22/23 01/24/23 History Sucralfate [Carafate] 1 gm PO TID 01/22/23 01/24/23 History rOPINIRole HCL 1 tab PO DAILY 01/22/23 01/24/23 History Allergies Allergy/AdvReac Type Severity Reaction Status Date / Time No Known Allergies Allergy Verified 01/24/23 08:53 Surgical - Exam Vital Signs Temp Pulse Resp BP Pulse Ox 97.0 F L 84 18 127/77 97 01/24/23 08:49 01/24/23 08:49 01/24/23 08:49 01/24/23 08:49 01/24/23 08:49 - General well developed, well nourished, no distress - Eyes PERRL - ENT normal pinna - Neck no masses - Respiratory normal expansion - Cardiovascular Rhythm: regular - Abdomen Abdomen: soft, non tender Assessment and Plan Assessment: History of GERD. We'll perform EGD.
--- NOTE | 2023-01-24 09:53 | P.OP ---
Date of Procedure: 01/24/23 Preoperative Diagnosis: Gastritis Dysphagia Postoperative Diagnosis: Antral gastritis Procedure(s) Performed: EGD Anesthesia: MAC Surgeon: Castillo Muhammad Pathology: other (Antrum) Condition: stable Disposition: PACU Description of Procedure: The patient's placed on the endoscopy table in the lateral position. He received IV sedation. The gastroscope placed oropharynx passed in the esophagus and then into the stomach. Scope was then placed through the pylorus. The first and second portion of the duodenum appeared normal. The scope was then brought back the antrum this. Mildly inflamed. A biopsies performed. Scope was unretroflexed and remainder the stomach appeared normal. There is no ev idence of a hiatal hernia. The GE junction was at 39 cm. The GE junction appeared to be without evidence of inflammation or scarring. The distal esophagus appeared normal. The proximal esophagus appeared normal. Scope withdrawn for patient.
[2023-01-24 10:09] VITALS: RESP 16
[2023-01-24 11:03] VITALS: BP 110/60; PULSE 57
== END | disposition home or self-care (01) ==
LOC: ORWHC2ENDO 08:24
PROVIDERS: ATTEND Surgery
DX: K29.50 Unspecified chronic gastritis without bleeding (principal); K31.A0 Gastric intestinal metaplasia, unspecified; K21.9 Gastro-esophageal reflux disease without esophagitis; E78.5 Hyperlipidemia, unspecified; F02.80 Dementia in other diseases classified elsewhere, unspecified severity, without behavioral disturbance, psychotic disturbance, mood disturbance, and anxiety; F32.A Depression, unspecified; G20.A1 Parkinson's disease without dyskinesia, without mention of fluctuations; Z79.899 Other long term (current) drug therapy; Z98.890 Other specified postprocedural states
CPT/HCPCS: 88305; 43239; J2704

== ENCOUNTER → 2023-02-01 | Outpatient (CLI) | payer MEDICARE ==
[2023-02-01 12:29] LABS: African American GFR (CKD) >90 (>60 ml/min/1.73 sqM); Blood Urea Nitrogen 18 mg/dL (9-20); Non-African American GFR(CKD) 81 (>60 ml/min/1.73 sqM)
--- NOTE | 2023-02-01 18:45 | CT ---
EXAMINATION TYPE: CT abdomen pelvis w con DATE OF EXAM: 02/01/2023 COMPARISON: 01/02/2023 HISTORY: 77-year-old male with unspecified abdominal pain, R10.9. TECHNIQUE: Contiguous axial scanning of the abdomen and pelvis following administration of 100 ml Iso ela 300 IV contrast. Delayed images through the kidneys and coronal/sagittal reconstructions perform ed. CT DLP: 510.7 mGycm Automated exposure control for dose reduction was used. FINDINGS: Heart normal size without pericardial effusion. Lung bases clear without pleural effusion. There is breathing motion artifact limited evaluation. There is some surgical material at the GE [facility] tion. 1.2 cm hypodensity right hepatic dome was present previously and has the appearance of a benign cyst. Portal venous system is patent. No biliary ductal dilatation. Gallbladder, adrenal glands, right kidney, spleen, and pancreas within normal limits. 2.4 cm parapelvic cyst left kidney. Symmetric uptake and excretion of contrast from both sides. No dilated small bowel, free fluid, or free air. No mesenteric or retroperitoneal lymphadenopathy. Oral contrast progressed to the descending colon. There is circumferential wall thickening involving a long segment of the transverse colon and then al so involving the sigmoid colon with associated mucosal hyperemia and mild engorgement of the pericolo eleazar vessels. There is mild diverticulosis along the proximal sigmoid colon but no focal inflammation centered here. Small fatty periumbilical hernias on both the right and left sides measuring 1.3 and 1.4 cm, respecti vely. Prostate gland enlargement 5.1 cm wide. There is an enhancing nodule of soft tissue extending into th e base of the bladder measuring 2.3 cm wide. Moderate circumferential bladder wall thickening is note d. No abnormal fluid collection in the pelvis or pelvic lymphadenopathy. Bones: Mild to moderate degenerative change of the hips. Moderate degenerative changes left SI joint and mild at the right SI joint. Moderate degenerative disc disease L4-L5. Hypertrophic facet arthropathy mid to lower lumbar spine. IMPRESSION: 1. SEGMENTAL COLITIS INVOLVING THE TRANSVERSE COLON WELL THE MID TO LOWER DESCENDING COLON, SIG MOID COLON, AND RECTUM. THERE IS MODERATE ASSOCIATED WALL THICKENING AND MUCOSAL HYPEREMIA. CORRELATE FOR INFECTIOUS OR INFLAMMATORY ETIOLOGIES. 2. SMALL FATTY PERIUMBILICAL HERNIA ON BOTH THE RIGHT AND LEFT SIDES MEASURING 1.3 AND 1.4 CM, RES PECTIVELY. 3. 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 THERE IS ALSO A NODULAR MASS CONTIGUOUS WITH THE PROSTATE GLAND EXT ENDING INTO THE BASE OF THE BLADDER MEASURING 2.3 CM WIDE, SUSPECTED MEDIAN LOBE HYPERTROPHY. CORRELA TE WITH PSA VALUES AND FOR SYMPTOMS OF BPH. 4. MODERATE CIRCUMFERENTIAL BLADDER WALL THICKENING MAY BE SECONDARY BLADDER WALL THICKENING. CORRELA TE TO EXCLUDE CYSTITIS.
== END | disposition home or self-care (01) ==
LOC: RADCTMAIN 11:24
PROVIDERS: ATTEND Family Medicine
DX: K29.70 Gastritis, unspecified, without bleeding (principal); K52.9 Noninfective gastroenteritis and colitis, unspecified; K63.89 Other specified diseases of intestine; R10.9 Unspecified abdominal pain; K42.9 Umbilical hernia without obstruction or gangrene; N40.2 Nodular prostate without lower urinary tract symptoms; N32.89 Other specified disorders of bladder
CPT/HCPCS: 82565; 84520; 74177; 36415; Q9967